=== PATIENT | female | born 1995 | race Caucasian/White ===

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

== ENCOUNTER 2017-05-27 11:03 | Emergency (ER) | payer SELFPAY ==
[2017-05-27 12:31] VITALS: BP 122/69
--- NOTE | 2017-05-27 12:58 | UC ---
FLU HPI - HPI Summary HPI Summary: Shameka presents with fever and headache since this morning. She states she noticed three spots on her legs also. She denies any ear pain. She denies any neck stiffness. She denies any cough, abdominal pain, chest pain, n/v/d. She has not taken anything for pain. - History of Current Complaint Chief Complaint: UCGeneralIllness Stated Complaint: HEADACHE,RASH Time Seen by Provider: 05/27/17 12:38 Hx Last Menstrual Period: 04/20/18, nexplanon Pain Intensity: 10 - Allergy/Home Medications Allergies/Adverse Reactions: Allergies Allergy/AdvReac Type Severity Reaction Status Date / Time Azithromycin [From Zithromax] AdvReac Abdominal Verified 05/27/17 12:28 Pain PMH/Surg Hx/FS Hx/Imm Hx Endocrine History: Other Other Endocrine History: no DM Respiratory History: Other Other Respiratory History: no asthma - Surgical History Surgical History: Yes Surgery Procedure, Year, and Place: [place] Teeth Extractions, 2015, [place] - Family History Known Family History: Positive: None, Other - + migraines Negative: Cardiac Disease, Hypertension, Diabetes Family History: no known cardio-vascular history in family lineage - Social History Alcohol Use: None Substance Use Type: None Smoking Status (MU): Never Smoked Tobacco - Immunization History Most Recent Influenza Vaccination: January 2016 Most Recent Tetanus Shot: 2010 Vaccination Up to Date: Yes Review of Systems Constitutional: Fever Skin: Rash Respiratory: Negative Cardiovascular: Negative Gastrointestinal: Negative All Other Systems Reviewed And Are Negative: Yes Physical Exam Triage Information Reviewed: Yes Appearance: Well-Appearing Vital Signs: Initial Vital Signs Temp 100.4 F 05/27/17 12:26 Pulse 108 05/27/17 12:26 Resp 16 05/27/17 12:26 BP 122/69 05/27/17 12:26 Pulse Ox 100 05/27/17 12:26 Vital Signs Reviewed: Yes Eye Exam: Normal ENT: Positive: Normal ENT inspection, Pharynx normal, TMs normal Respiratory: Positive: Lungs clear, Normal breath sounds Cardiovascular: Positive: RRR Abdomen Description: Positive: Nontender, Soft Bowel Sounds: Positive: Present Musculoskeletal Exam: Normal Neurological Exam: Normal Psychological Exam: Normal Skin: Positive: rashes - three blanching macules on legs Flu Course/Dx - Course Course Of Treatment: Shameka presents with fever and headache since this morning. She states she noticed three spots on her legs also. She denies any ear pain. She denies any neck stiffness. She denies any cough, abdominal pain, chest pain , n/v/d. She has not taken anything for pain. on exam has three blanching macules that look like viral rash. lungs CTA. flu neg. likely viral. explained should take tyenlol and ibuprofen. patient understand and agrees with plan. - Differential Dx/Diagnosis Differential Diagnosis/HQI/PQRI: Bronchitis, Influenza, Upper Respiratory Infection Provider Diagnoses: headache, rash Discharge - Discharge Plan Condition: Good Disposition: HOME Patient Education Materials: Viral Syndrome (ED) Referrals: MICHAEL Ramirez [Primary Care Provider] - Additional Instructions: Use saline spray in nose as much as needed for nasal congestion If rash is itchy can use hydrocoritisone Take Tylenol or ibuprofen for headache every 6 hours Return to ED if develop any new or worsening symptoms
== END 2017-05-27 13:22 | disposition home or self-care (01) ==
LOC: UCCORT 11:03
DX: R51 Headache (principal); R21 Rash and other nonspecific skin eruption
CPT/HCPCS: 87502; 99211; G0463

== ENCOUNTER 2017-10-06 12:56 | Emergency (ER) | payer OTHER ==
--- NOTE | 2017-10-06 13:07 | UC ---
Lower Extremity/Ankle HPI - HPI Summary HPI Summary: 21 y/o female adolescent presents to the urgent care c/o Left foot pain for the past 2 days. Pt reports Hx bunion surgery 11/2016. Pain is across dorsum at distal metatarsals and over the surgery. Pain is 7/10 sharp specially w/ walking and flexing foot associate w/ mild swelling. Pain worsen since yesterday she had to stand up all day at work. Pt has not taking anything to alleviate symptoms. Pt denies numbness or tingling sensation over the toes, calf pain, SOB, chest pain, abdominal pain, N/V/D. Pt is UTD w/ all vaccines for her age. - History of Current Complaint Stated Complaint: LEFT FOOT COMPLAINT Time Seen by Provider: 10/06/17 13:06 Hx Obtained From: Patient Hx Last Menstrual Period: 04/20/18, nexplanon Onset/Duration: Gradual Onset, Lasting Days - 2 days, Still Present, Worse Since - today Severity Initially: Mild Severity Currently: Moderate Pain Intensity: 7 Pain Scale Used: 0-10 Numeric Aggravating Factor(s): Ambulation Alleviating Factor(s): Rest, OTC Meds Able to Bear Weight: Yes - Risk Factors Gout Risk Factors: Negative DVT Risk Factors: Negative Septic Arthritis Risk Factor: Negative - Allergies/Home Medications Allergies/Adverse Reactions: Allergies Allergy/AdvReac Type Severity Reaction Status Date / Time azithromycin AdvReac Abdominal Verified 10/06/17 13:24 Pain PMH/Surg Hx/FS Hx/Imm Hx Previously Healthy: Yes - Pt denies PMHX - Surgical History Surgical History: Yes Surgery Procedure, Year, and Place: [place] Teeth Extractions, 2015, [place] - Family History Known Family History: Positive: Hypertension, Diabetes Negative: Cardiac Disease Family History: + migraines - Social History Occupation: Employed Full-time Lives: With Family Alcohol Use: None Substance Use Type: None Smoking Status (MU): Never Smoked Tobacco - Immunization History Most Recent Influenza Vaccination: January 2016 Most Recent Tetanus Shot: 2010 Vaccination Up to Date: Yes Review of Systems Constitutional: Negative Skin: Negative Eyes: Negative ENT: Negative Respiratory: Negative Cardiovascular: Negative Gastrointestinal: Negative Genitourinary: Negative Motor: Negative Neurovascular: Negative Musculoskeletal: Decreased ROM - left foot, Other: - left foot pain Neurological: Negative Psychological: Negative Is Patient Immunocompromised?: No All Other Systems Reviewed And Are Negative: Yes Physical Exam - Summary Physical Exam Summary: Vital Signs Reviewed: Yes General : well developed, well nourished female adolescent w/o any apparent distress Eyes: Positive: Conjunctiva Clear - PERRLA, EOMI ENT: Positive: Normal ENT inspection, Hearing grossly normal, Pharynx normal, TMs normal Neck: Positive: Supple, Nontender, No Lymphadenopathy Respiratory: Positive: Chest non-tender, Lungs clear, Normal breath sounds, No respiratory distress Cardiovascular: Positive: RRR, No Murmur, Pulses Normal Abdomen Description: Positive: Nontender, No Organomegaly, Soft. Negative: CVA Tenderness (R), CVA Tenderness (L) Bowel Sounds: Positive: Present Musculoskeletal: Positive: Strength Intact, ROM Intact, No Edema, LF Foot/Toes : Pt is able to bear weight but ambulate with mild limping. LF foot :No surface trauma, ecchymosis, erythema, lesions, ulcers or break in skin integrity. scar at the first MTPJ s/p bunion surgery, tende to palpation also point tenderness over the dorsal side of mid foot and sole at the same level. LF foot is without obvious asymmetry or deformity when compared to the RT foot. No bony step-off, No tenderness to palpation over toes, no tenderness of hindfoot, Decrease plantar/dorsiflexion, inversion/eversion due to pain. Distal motor and neurovascular status are intact. Neurological Exam: Normal Psychological Exam: Normal Skin Exam: Normal Triage Information Reviewed: Yes Lower Extremity Course/Dx - Course Course Of Treatment: 21 y/o female adolescent presents to the urgent care c/o Left foot pain for the past 2 days. Pt reports Hx bunion surgery 11/2016. Pain is across dorsum at distal metatarsals and over the surgery. Pain is 7/10 sharp specially w/ walking and flexing foot associate w/ mild swelling. Pain worsen since yesterday she had to stand up all day at work. Pt has not taking anything to alleviate symptoms. Pt denies numbness or tingling sensation over the toes, calf pain, SOB, chest pain, abdominal pain, N/V/D. Pt is UTD w/ all vaccines for her age. Hx obtained. RT foot X-ray ordered, Impression:There was no fracture, dislocation, positive soft tissue around the first MTPJ around screws from previous bunion surgery observed as per radiologist. Probably tendonitis. Pt's foot immobilized with leonard-bandage and given a post-op shoe and crutches to avoid flexion . Advised RICE, and Rx Naproxen PO for pain, If not improvement of symptoms to f/u with Orthopedic DR referral for further evaluation and treatment. Pt understood and agreed with D/C instructions - Differential Dx/Diagnosis Differential Diagnosis/HQI/PQRI: Contusion, Fracture (Closed), Sprain, Strain, Tendonitis, Other - plantar fasciitis Provider Diagnoses: 1- Acute left foot pain Discharge - Discharge Plan Condition: Stable Disposition: HOME Prescriptions: Ibuprofen TAB* [Motrin TAB* 600 MG] 600 mg PO Q6H PRN #30 tab PRN Reason: Pain Patient Education Materials: Foot Sprain (ED) Forms: *Work Release Referrals: Clarence Ivory MD [Medical Doctor] - 1 Week MICHAEL Ramirez [Primary Care Provider] - 1 Week Additional Instructions: 1-Please take medications as directed to alleviate pain and swelling. 2-Please apply ice, keep your foot immobilized with the Leonard bandage and post-op shoe to avoid flexion. Avoid strenuous exercise or standing for long periods of time. Use the crutches to avoid weight bearing 3- Please f/u with your PCP or Orthopedic Dr Ivory in 1 week if not improvement of symptoms for further evaluation and treatment. - Billing Disposition and Condition Condition: STABLE Disposition: Home
[2017-10-06 13:23] VITALS: BP 110/79
[2017-10-06] MEDS ORDERED: Ibuprofen TAB* 400 MG PO ONE (13:37)
--- NOTE | 2017-10-06 14:27 | RAD ---
Indication: 2 days LEFT metatarsal foot pain without known injury. Previous bunion surgery in 2017. Comparison: September 19, 2012 Technique: AP, lateral, and oblique views LEFT foot. REPORT AND IMPRESSION: Negative for fracture or radiographic findings of stress reaction. 2 screws traverse the healed osteotomy site at the distal first metatarsal without suspicious finding. Normal articular alignment and preserved joint spaces. Mild soft tissue swelling superficial to the first metatarsal phalangeal joint.
== END 2017-10-06 15:00 | disposition home or self-care (01) ==
LOC: UCCORT 12:56
DX: M79.672 Pain in left foot (principal)
CPT/HCPCS: 84702; 99213; A9270-GY; G0463

== ENCOUNTER 2018-01-17 09:26 | Emergency (ER) | payer OTHER ==
[2018-01-17 09:42] VITALS: BP 115/71
--- NOTE | 2018-01-17 09:55 | UC ---
Throat Pain/Nasal Giovanni HPI - HPI Summary HPI Summary: This patient is a 22 year old F [place] [facility] [place] chief complaint of sore throat that began a week ago and has gotten worse. The patient rates the pain 7/10 in severity. Patient reports cough, chills, decreased appetite, fatigue, nasal congestion, and LINCOLN. Patient denies fever, n/v/d, and rash. Pt with mild right ear pain. nasal congestion. fatigues. Pt has been taking ibuprofen for pain but has not had a dose for two days. Pt denies possibility of . She has had mono twice with the last time being 3 years ago. pt' s family member with hand foot mouth. She denies any recent travel. Pt reports not getting yeast infections with abx use. Patients medications reviewed this visit. - History of Current Complaint Chief Complaint: UCGeneralIllness Stated Complaint: SORE THROAT HEADACHE Hx Obtained From: Patient Hx Last Menstrual Period: irregular Onset/Duration: Lasting Weeks - 1, Still Present Severity: Severe Pain Intensity: 7 Pain Scale Used: 0-10 Numeric Cough: Nonproductive Associated Signs & Symptoms: Positive: Other - LINCOLN. Negative: Fever, Rash - Allergies/Home Medications Allergies/Adverse Reactions: Allergies Allergy/AdvReac Type Severity Reaction Status Date / Time amoxicillin Allergy Unknown Verified 01/17/18 09:36 Reaction Details azithromycin AdvReac Abdominal Verified 01/17/18 09:36 Pain PMH/Surg Hx/FS Hx/Imm Hx - Additional Past Medical History Additional PMH: MONO Previously Healthy: Yes Other History Of: Negative For: Hepatitis C - Surgical History Surgical History: Yes Surgery Procedure, Year, and Place: [place] Teeth Extractions, 2015, [place]. bunionectomy October 2016 - Family History Known Family History: Positive: Hypertension, Diabetes, Other - + migraines Negative: Cardiac Disease Family History: + migraines - Social History Occupation: Employed Full-time Lives: With Family Alcohol Use: None Substance Use Type: None Smoking Status (MU): Never Smoked Tobacco - Immunization History Most Recent Influenza Vaccination: January 2016 Most Recent Tetanus Shot: 2010 Vaccination Up to Date: Yes Review of Systems Constitutional: Chills, Fatigue, Other - decreased appetite ENT: Sore Throat, Ear Ache, Nasal Discharge, Sinus Congestion Respiratory: Cough Neurological: Headache All Other Systems Reviewed And Are Negative: Yes Physical Exam - Summary Physical Exam Summary: Vital Signs Reviewed: Yes A+Ox3, no distress Eyes: Conjunctiva Clear, [place]. EOM intact and full ENT: Hearing grossly normal right ear ++ fluid, erythema left ear wnl turbinates inflammed and boggy + PND no xudate no erythema no ulcerative lesions Neck: Positive: Supple Respiratory: Positive: No respiratory distress, No accessory muscle use + CTA throughout no w/r Cardiovascular: RRR nl s1, s2 no m/r CBT <2 sec Musculoskeletal Exam: CHO x 4 without difficulty Strength Intact, ROM Intact Neurological: Positive: Alert, + sensation throughout Psychological: Positive: Normal Response To Family Skin: Positive: no rash, no ecchymosis Triage Information Reviewed: Yes Vital Signs: Initial Vital Signs Temp 98 F 01/17/18 09:36 Pulse 106 01/17/18 09:36 Resp 18 01/17/18 09:36 BP 115/71 01/17/18 09:36 Pulse Ox 98 01/17/18 09:36 Throat Pain/Nasal Course/Dx - Course Course Of Treatment: Pt presents with 8 days of sore throat, fatigue, congestion. VSS. pt with right ear OM and sinus congesion with PND. Will Rx flonase, omnicef (Amox caused rash - no resp or swelling reaction). motrin/ apap. hydrate. secretion precaution. return precaution - Differential Dx/Diagnosis Provider Diagnoses: right OM. sinusitis Discharge - Sign-Out/Discharge Documenting (check all that apply): Patient Departure All imaging exams completed and their final reports reviewed: No Studies - Discharge Plan Condition: Stable Disposition: HOME Prescriptions: Cefdinir [Cefdinir 300 MG CAP] 300 mg PO BID #14 capsule Fluticasone NASAL SPRAY 50MCG* [Flonase NASAL SPRAY 50MCG*] 2 spray BOTH NARES DAILY #1 btl Patient Education Materials: Ear Infection (ED), Rhinosinusitis (ED) Referrals: Jennifer White PA [Primary Care Provider] - Additional Instructions: - Stay well hydrated. Drink plenty of non-alcoholic, non-caffinated beverages. - Alternate ibuprofen (Advil, Motrin) 600mg and Tylenol every 3 hours for pain or fever. Take with food. Do NOT take for more than 4-5 days. - These infections are spread by secretions - do NOT share eating or drinking utensils - clean items you share with other people such as cell phones, computer mouse, TV remote, computer tablets,etc. Once you have been antibiotics for 2 days, change your toothbrush and your pillowcase. - get plenty of restful sleep - okay to take over the counter decongestant and cough medication - use nasal spray as prescribed - contact your doctor or return with questions or concerns - Billing Disposition and Condition Condition: STABLE Disposition: Home - Attestation Statements Document Initiated by Liana: Yes Documenting Scribe: Michael Gann Provider For Whom Liana is Documenting (Include Credential): Kaycee Barahona MD Scribe Attestation: Michael Mcdonough , scribed for Kaycee Barahona MD on 01/17/18 at 1026. Scribe Documentation Reviewed: Yes Provider Attestation: The documentation as recorded by the Michael cr accurately reflects the service I personally performed and the decisions made by me, Kaycee Barahona MD
== END 2018-01-17 10:36 | disposition home or self-care (01) ==
LOC: UCEAST 09:26
DX: H66.91 Otitis media, unspecified, right ear (principal); J32.9 Chronic sinusitis, unspecified; Z86.19 Personal history of other infectious and parasitic diseases; Z88.3 Allergy status to other anti-infective agents
CPT/HCPCS: 87651; 99212; G0463

== ENCOUNTER 2018-02-04 11:03 | Emergency (ER) | payer OTHER ==
[2018-02-04 11:13] VITALS: BP 108/74
--- NOTE | 2018-02-04 11:41 | UC ---
Abdominal Pain Female HPI - HPI Summary HPI Summary: 22 y/o female presents to the urgent care c/o frequency and burning on urination since Tuesday01/30/2018 for the past week. Her symptoms have been associated w/ mild Rt pelvic pain and lower back pain. Pain is dull and intermittent 08/09. Pt reports she had nausea yesterday and went to the [facility] and she was Dx w/ UTI and Rx Macrobid. She was given first dose at the ER of [facility] last night . However this morning she has not spanish moss picker her medication at the pharmacy yet. She thinks symptoms are worsen since she is going more to the bathroom. LMP:02/03/2018, she just got her period yesterday. She is on Nexplanon. Pt denies fever, flank pain, SOB, chest pain, V/D, vaginal discharge , hx of STD's or ovarian cysts. - History of Current Complaint Chief Complaint: UCGI Stated Complaint: STOMACH PAIN, CHILLS, NAUSEA Time Seen by Provider: 02/04/18 11:21 Hx Obtained From: Patient Hx Last Menstrual Period: currently ?: No Onset/Duration: Gradual Onset, Lasting Days - 6 days, Still Present Timing: Intermittent Episodes Lasting: Severity Initially: Mild Severity Currently: Moderate Pain Intensity: 6 Pain Scale Used: 0-10 Numeric Location: Discrete At: RLQ, Suprapubic Radiates to: Back - lower back Character: Burning Aggravating Factor(s): Other: - urination Alleviating Factor(s): Medications Associated Signs and Symptoms: Positive: Back Pain - owerr back pain, Nausea - yesterday. Negative: Diaphoresis, Fever, Cough, Vaginal Bleeding, Vaginal Discharge - Risk Factors Ectopic Risk Factor: Negative Ovarian Torsion Risk Factor: Negative Allergies/Adverse Reactions: Allergies Allergy/AdvReac Type Severity Reaction Status Date / Time amoxicillin Allergy Hives Verified 02/04/18 11:13 azithromycin AdvReac Abdominal Verified 02/04/18 11:13 Pain Home Medications: Home Medications Ibuprofen TAB* [Advil TAB*] 600 mg PO ONCE PRN 02/04/18 [History Confirmed 02/04] Nitrofurantoin Monohyd/M-Cryst [Macrobid 100 mg Capsule] 100 mg PO 02/04/18 [ History] Ondansetron ODT TAB* [Zofran 4 MG Odt TAB*] 4 mg PO ONCE PRN 02/04/18 [History Confirmed 02/04/18] PMH/Surg Hx/FS Hx/Imm Hx Previously Healthy: Yes - Pt denies PMHX Other History Of: Negative For: Hepatitis C - Surgical History Surgical History: Yes Surgery Procedure, Year, and Place: [place] Teeth Extractions, 2015, [facility]. bunionectomy October 2016 - Family History Known Family History: Positive: Hypertension, Diabetes Negative: Cardiac Disease Family History: + migraines - Social History Occupation: Employed Full-time Lives: With Family Alcohol Use: None Substance Use Type: None Smoking Status (MU): Never Smoked Tobacco - Immunization History Most Recent Influenza Vaccination: January 2016 Most Recent Tetanus Shot: 2010 Vaccination Up to Date: Yes Review of Systems Constitutional: Negative Skin: Negative Eyes: Negative ENT: Negative Respiratory: Negative Cardiovascular: Negative Gastrointestinal: Abdominal Pain - RLQ abdominal pain, Other - suprapubic Genitourinary: Dysuria, Frequency, Urgency Motor: Negative Neurovascular: Negative Musculoskeletal: Negative Neurological: Negative Psychological: Negative Is Patient Immunocompromised?: No All Other Systems Reviewed And Are Negative: Yes Physical Exam - Summary Physical Exam Summary: VITAL SIGNS: Reviewed. GENERAL: Patient is a well developed and nourished obese female who is sitting comfortable in the examining table. Patient is not in any acute respiratory distress. HEAD AND FACE: No signs of trauma. No ecchymosis, hematomas or skull depressions. No sinus tenderness. EYES: PERRLA, EOMI x 2, No injected conjunctiva, clear watery eyes, no nystagmus. No photophobia. EARS: Hearing grossly intact. Ear canals and tympanic membranes are within normal limits. MOUTH: pharynx with no erythema, no exudates,no palatal petechiae. no B/L tonsillar enlargement Uvula in midline. NECK: Supple, trachea is midline, no lymphadenopathy, no JVD, no carotid bruit, no c-spine tenderness, neck with full ROM. CHEST: Symmetric, no tenderness at palpation LUNGS: Clear to auscultation bilaterally. No wheezing or crackles. CVS: Regular rate and rhythm, S1 and S2 present, no murmurs or gallops appreciated. ABDOMEN: Soft, non-tender. No signs of distention. No rebound no guarding, and no masses palpated. Bowel sounds are normal. BACK:no scoliosis or lesions, non tender to palpation, No B/L CVA tenderness EXTREMITIES: FROM in all major joints, no edema, no cyanosis or clubbing. NEURO: Alert and oriented x 3. No acute neurological deficits. Speech is normal and follows commands. SKIN: Dry and warm Triage Information Reviewed: Yes Vital Signs: Initial Vital Signs Temp 98.2 F 02/04/18 11:09 Pulse 73 02/04/18 11:09 Resp 16 02/04/18 11:09 BP 108/74 02/04/18 11:09 Pulse Ox 99 02/04/18 11:09 Abd Pain Female Course/Dx - Course Course Of Treatment: 22 y/o female presents to the urgent care c/o frequency and burning on urination since Tuesday01/30/2018 for the past week. Her symptoms have been associated w/ mild Rt pelvic pain and lower back pain. Pain is dull and intermittent 10. Pt reports she had nausea yesterday and went to the [facility] and she was Dx w/ UTI and Rx Macrobid. She was given first dose at the [facility] last night . However this morning she has not spanish moss picker her medication at the pharmacy yet. She thinks symptoms are worsen since she is going more to the bathroom. LMP:02/03/2018, she just got her period yesterday. She is on Nexplanon. Pt denies fever, flank pain, SOB, chest pain, V/D, vaginal discharge, hx of STD's or ovarian cysts. Hx obtained. PE: WNL, no B/L CVA tenderness and abdomen WNL one examination at this moment. UA: positive 3+ blood. test: negative. Pt is on her period and took a dose of Macrobid at the [facility]. Urine sent for culture to r/o any abnormality. Pt w / Dysuria. Pt Rx Pyridium PO to alleviate symptoms. Pt advised to increase fluid intake, rest and eat well. Pt will be notified of any abnormality in lab. Advised to spanish moss picker antibiotic and stat taking it. Pt strongly advised if flank pain develops w/ fever despite taking antibiotic to go immediately to the ER. D/ C instructions explained. Pt understood and agreed w/ plan of care. pt left clinic ambulating and hemodynamically stable. - Differential Dx/Diagnosis Differential Diagnosis: Appendicitis, Ovarian Cyst, , Renal Colic, Urinary Tract Infection Provider Diagnoses: 1- Dysuria Discharge - Sign-Out/Discharge Documenting (check all that apply): Patient Departure - D/C home All imaging exams completed and their final reports reviewed: No Studies - Discharge Plan Condition: Stable Disposition: HOME Prescriptions: Phenazopyridine TAB* [Pyridium 100 mg TAB*] 100 mg PO TID #6 tab Patient Education Materials: Dysuria (ED) Forms: *Work Release Referrals: Jennifer White PA [Primary Care Provider] - 2 Days Additional Instructions: 1- Please continue taking Macrobid 100mg PO that was Rx at [facility] yesterday . Take Pyridium 100 mg PO TID x 2 days to alleviate urinary symptoms. Increase increase fluid intake. drink cranberry juice. 2-Urine sent for culture if any abnormality, you will be notified for further treatment. 3-If symptoms do not improve please return to the urgent care or f/u with your PCP for further management. 4- If your develop fever and flank pain go immediately to the ER for further management - Billing Disposition and Condition Condition: STABLE Disposition: Home - Attestation Statements Provider Attestation: Per institutional requirements, I have reviewed the chart, however, I was not consulted specifically or made aware of this patient by the midlevel provider. I did not personally evaluate, interact with , or disposition this patient.
== END 2018-02-04 12:10 | disposition home or self-care (01) ==
LOC: UCEAST 11:03
DX: R30.0 Dysuria (principal)
CPT/HCPCS: 81003; 84702; 87086; 99212; G0463

== ENCOUNTER 2018-05-20 21:33 | Emergency (ER) | payer SELFPAY ==
[2018-05-20] MEDS ORDERED: Ibuprofen TAB* 600 MG PO ONE (22:35)
--- NOTE | 2018-05-20 22:35 | ED ---
Lower Extremity - HPI Summary HPI Summary: Patient complains of right ankle pain status post mechanical fall 2 days ago when she slipped on the ice. Patient has been ambulatory, states pain not improving. Medical history is none. No anti-coag. Patient has not tried any OTC meds for pain. Pain rated 7/10. - History of Current Complaint Chief Complaint: EDExtremityLower Stated Complaint: RIGHT ANKLE INJURY Time Seen by Provider: 05/20/18 22:02 Hx Obtained From: Patient Hx Last Menstrual Period: currently Mechanism Of Injury: Fall From A Standing Position Onset of Pain: Immediate Onset/Duration: Days Severity Initially: Moderate Severity Currently: Moderate Pain Intensity: 6 Pain Scale Used: 0-10 Numeric Timing: Constant Location: Is Discrete @ Character Of Pain: Throbbing Associated Signs And Symptoms: Positive: Swelling Aggravating Factor(s): Ambulation, Weight Bearing Alleviating Factor(s): Rest, Elevation Able to Bear Weight: Yes - Allergies/Home Medications Allergies/Adverse Reactions: Allergies Allergy/AdvReac Type Severity Reaction Status Date / Time amoxicillin Allergy Hives Verified 05/20/18 21:38 azithromycin AdvReac Abdominal Verified 05/20/18 21:38 Pain PMH/Surg Hx/FS Hx/Imm Hx Endocrine/Hematology History: Denies: Hx Diabetes, Hx Thyroid Disease Cardiovascular History: Denies: Hx Hypertension Respiratory History: Denies: Hx Asthma, Hx Chronic Obstructive Pulmonary Disease (COPD) GI History: Denies: Hx Ulcer History: Denies: Hx Dialysis Sensory History: Denies: Hx Eye Prosthesis EENT History: Denies: Hx Deafness Neurological History: Denies: Hx Developmental Delay Psychiatric History: Denies: Hx Autism - Surgical History Surgery Procedure, Year, and Place: [place] Teeth Extractions, 2016, [place]. bunionectomy October 2016 Infectious Disease History: No Infectious Disease History: Denies: Hx Hepatitis, Hx Human Immunodeficiency Virus (HIV), Traveled Outside the [place] in Last 30 Days - Family History Known Family History: Positive: None, Hypertension, Diabetes, Other - + migraines Negative: Cardiac Disease Family History: + migraines - Social History Alcohol Use: None Substance Use Type: Reports: None Smoking Status (MU): Never Smoked Tobacco Review of Systems Constitutional: Negative Eyes: Negative ENT: Negative Cardiovascular: Negative Respiratory: Negative Gastrointestinal: Negative Genitourinary: Negative Positive: Arthralgia Skin: Negative Neurological: Negative Psychological: Normal All Other Systems Reviewed And Are Negative: Yes Physical Exam - Summary Physical Exam Summary: Swelling to right ankle. No ecchymosis, erythema, extra warmth. Flexion and extension full range of motion with pain. PMS intact distally. Calf soft nontender. Triage Information Reviewed: Yes Vital Signs On Initial Exam: Initial Vitals Temp Pulse Resp BP Pulse Ox 99.3 F 90 16 131/79 99 05/20/18 21:35 05/20/18 21:35 05/20/18 21:35 05/20/18 21:35 05/20/18 21:35 Vital Signs Reviewed: Yes Appearance: Positive: Well-Appearing Skin: Positive: Warm Head/Face: Positive: Normal Head/Face Inspection Eyes: Positive: Normal Neck: Positive: Supple Respiratory/Lung Sounds: Positive: Clear to Auscultation Cardiovascular: Positive: Normal Abdomen Description: Positive: Nontender Musculoskeletal: Positive: Normal Neurological: Positive: Normal Psychiatric: Positive: Normal AVPU Assessment: Alert - [place] Coma Scale Best Eye Response: 4 - Spontaneous Best Motor Response: 6 - Obeys Commands Best Verbal Response: 5 - Oriented Coma Scale Total: 15 Diagnostics - Vital Signs Vital Signs Temp Pulse Resp BP Pulse Ox 05/20/18 21:35 99.3 F 90 16 131/79 99 - Laboratory Lab Statement: Any lab studies that have been ordered have been reviewed, and results considered in the medical decision making process. Lower Extremity Course/Dx - Course Course Of Treatment: Patient complains of right ankle pain status post mechanical fall 2 days ago when she slipped on the ice. Patient has been ambulatory, states pain not improving. Medical history is none. No anti-coag. Patient has not tried any OTC meds for pain. Pain rated 7/10. Physical exam: Swelling to right ankle. No ecchymosis, erythema, extra warmth. Flexion and extension full range of motion with pain. PMS intact distally. Calf soft nontender. Vital signs within normal limits. X-ray right ankle unremarkable. Patient placed in stirrup splint. Ibuprofen for pain. - Diagnoses Provider Diagnoses: Ankle sprain Discharge - Sign-Out/Discharge Documenting (check all that apply): Patient Departure - Discharge Plan Condition: Stable Disposition: HOME Patient Education Materials: Ankle Sprain (ED), Ankle Stirrup Splint (ED) Forms: *Work Release Referrals: Jennifer White PA [Primary Care Provider] - Bertin Hutson MD [Medical Doctor] - Additional Instructions: Rest, ice, elevation and ibuprofen for pain. Symptoms should improve in 4-5 days. If symptoms do not follow-up with orthopedics Dr. Alston for further evaluation. Return to the ED for any new or worsening symptoms - Billing Disposition and Condition Condition: STABLE Disposition: Home
[2018-05-20 22:50] VITALS: BP 117/62
== END 2018-05-20 22:48 | disposition home or self-care (01) ==
LOC: ED 21:33
DX: S93.401A Sprain of unspecified ligament of right ankle, initial encounter (principal); W00.0XXA Fall on same level due to ice and snow, initial encounter; Y92.9 Unspecified place or not applicable; Z88.1 Allergy status to other antibiotic agents; Z88.0 Allergy status to penicillin
CPT/HCPCS: 99282; A9270-GY

== ENCOUNTER 2023-04-12 13:48 | Inpatient (IN) ==
[2023-04-12] MEDS ORDERED: Lidocaine 1% VIAL 10 MG/ML 30 ML VIAL INJ PRN (15:16)
[2023-04-12] MEDS ORDERED: Lactated Ringers 1000 ml BAG 1,000 ML IV ONE ×2 (15:16→17:53)
[2023-04-12 16:46] LABS: ABS Basophils 0.1 10^3/uL (0.0-0.1); ABS Eosinophils 0.1 10^3/uL (0.0-0.5); ABS Lymphocytes 1.9 10^3/uL (1.0-4.8); ABS Monocytes 0.8 10^3/uL (0.0-0.9); ABS Neutrophils 7.1 10^3/uL (1.5-7.6); Eosinophil % 0.9 %; Hematocrit 39.1 % (35-45); Hemoglobin 13.2 g/dL (11.5-14.3); Lymphocyte % 18.9 %; Mean Corpuscular Hemoglobin 28.2 pg (27-33); Mean Corpuscular Hgb Conc 33.7 g/dL (31-36); Mean Corpuscular Volume 83.7 fL (80-97); Mean Platelet Volume 9.5 fL (7.5-11.2); Platelet Count 314 10^3/uL (150-450); Red Blood Count 4.67 10^6/uL (3.63-4.92)
[2023-04-12] MEDS ORDERED: Phenylephrine 40 mcg/mL 10mL (400mcg) SYRINGE ONE (16:49)
[2023-04-12] MEDS ORDERED: OBEPIDURAL (200 ML) 200 ML EPIDURAL ONE (16:49)
[2023-04-12] MEDS ORDERED: Lidocaine 1.5% EPI 1:200,000 30 ML SDV ONE ×2 (16:49→17:12)
[2023-04-12 17:02] LABS: Urine Benzodiazepine Screen None Detected (None Detect); Urine Cannabinoids Screen None Detected (None Detect); Urine Opiates Screen None Detected (None Detect)
[2023-04-12] MEDS ORDERED: Lidocaine 1% MPF 5 ML VIAL ONE (17:13)
[2023-04-12] MEDS ORDERED: Phenylephrine 40 mcg/mL 10mL (400mcg) SYRINGE IV PUSH PRN ×2 (17:53)
[2023-04-12] MEDS ORDERED: Sodium Citrate/Citric Acid LIQ 15 ML UDC PO PRN (17:53)
[2023-04-12] MEDS ORDERED: Lactated Ringers 1000 ml BAG 1,000 ML IV SCH (18:00)
[2023-04-12] MEDS ORDERED: OBEPIDURAL (200 ML) 200 ML EPIDURAL SCH (18:00)
[2023-04-12 19:45] LABS: Urine Appearance Clear; Urine Bilirubin Negative (Negative); Urine Blood Negative (Negative); Urine Color Yellow; Urine Glucose Negative (Negative); Urine Ketones Trace (Negative); Urine Nitrite Negative (Negative); Urine Protein Negative (Negative); Urine Urobilinogen Negative (Negative)
[2023-04-12] MEDS ORDERED: Bupivacaine 0.25% SDV PF 10 ML VIAL INJ ONE (20:28)
[2023-04-12] MEDS ORDERED: Oxytocin in LR 20,000 MILLI.UNIT/1,000 ML BAG IV ONE (22:44)
[2023-04-13] MEDS ORDERED: Methylergonovine 0.2 mg AMPULE 1 ml AMP ONE
[2023-04-13] MEDS ORDERED: Dibucaine 1% OINT 28.35 GM TUBE PR PRN (01:29)
[2023-04-13] MEDS ORDERED: Glycerin ADULT 2.4 gm SUPP PR PRN (01:29)
[2023-04-13] MEDS ORDERED: Witch Hazel PAD JAR TOPICAL PRN (01:29)
[2023-04-13] MEDS ORDERED: Methylergonovine 0.2 mg AMPULE 1 ml AMP IM ONE (01:29)
[2023-04-13] MEDS ORDERED: Oxytocin in LR 20,000 MILLI.UNIT/1,000 ML BAG IV SCH (01:30)
[2023-04-13] MEDS ORDERED: Lactated Ringers 1000 ml BAG 1,000 ML IV SCH (02:00)
[2023-04-13 12:40] LABS: ABS Lymphocytes 1.5 10^3/uL (1.0-4.8); ABS Monocytes 0.7 10^3/uL (0.0-0.9); ABS Neutrophils 7.8 10^3/uL (1.5-7.6); ABS Nucleated RBC 0.01 10^3/ul; Eosinophil % 0.1 %; Hemoglobin 10.6 g/dL (11.5-14.3); Lymphocyte % 15.1 %; Mean Corpuscular Hemoglobin 28.5 pg (27-33); Mean Corpuscular Hgb Conc 34.2 g/dL (31-36); Mean Corpuscular Volume 83.3 fL (80-97); Mean Platelet Volume 9.7 fL (7.5-11.2); Nucleated Red Blood Cells % 0.1 %/100WBC (0.0-0.8); Platelet Count 271 10^3/uL (150-450); Red Blood Count 3.72 10^6/uL (3.63-4.92); Red Cell Distribution Width 13.8 % (12-17); White Blood Count 10.1 10^3/uL (3.8-11.8)
[2023-04-14 07:28] VITALS: BP 93/49
== END 2023-04-14 13:01 | disposition home or self-care (01) | DRG 560 ==
LOC: MCHOBOUT 13:48 → MCHOB 15:16
PROVIDERS: ADMIT Midwife; ATTEND Midwife